=== PATIENT | male | born 1975 | race African-American/Black ===

== ENCOUNTER 2017-07-20 20:14 | Inpatient (IN) | payer BC ==
[~2017-07-20 20:14] MED LIST: ISOVUE-370 76%-LOCM 1 ML ONE
[2017-07-20] MEDS ORDERED: Fentanyl 100 MCG/2 ML VIAL ONE (21:05)
[2017-07-20] MEDS ORDERED: Lidocaine 1% w/Epinephrine 1:100K 20 ML VIAL FS SCH (21:15)
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
[2017-07-20] MEDS ORDERED: Morphine 4 MG/ML VIAL ONE (22:23)
[2017-07-20] MEDS ORDERED: Clindamycin/D5W 900 mg/50 ml Premix Bag ONE (22:23)
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
[2017-07-20] MEDS ORDERED: Adacel (T-DAP) 0.5 ML VIAL ONE (23:03)
[2017-07-20] MEDS ORDERED: Bacitracin Zinc 1 Packet ONE (23:32)
[2017-07-21] MEDS ORDERED: Ondansetron ODT 4 MG TAB SL PRN (00:37)
[2017-07-21] MEDS ORDERED: D5 1/2 NS w/20 mEq KCL 1,000 ML IV SCH (00:37)
[2017-07-21] MEDS ORDERED: Ondansetron HCl/PF 4 MG/2 ML Vial IVP PRN ×2 (00:37→00:38)
[2017-07-21] MEDS ORDERED: Dextrose 50% Abboject 50 ML SYRINGE SLOW IVP PRN (00:38)
[2017-07-21] MEDS ORDERED: Dextrose 5% in Water 1,000 ML IV PRN (00:38)
[2017-07-21] MEDS ORDERED: Morphine 4 MG/ML VIAL IV PRN ×2 (00:38)
[2017-07-21] MEDS ORDERED: Chlorhexidine Gluconate 15 ML UDCUP SSP PRN (00:38)
[2017-07-21] MEDS ORDERED: hydrALAZINE 20 MG/ML VIAL SLOW IVP PRN (00:38)
[2017-07-21] MEDS ORDERED: Promethazine HCl 25 MG/ML VIAL IM PRN (00:38)
[2017-07-21] MEDS ORDERED: Ondansetron ODT 4 MG TAB PO PRN (00:38)
[2017-07-21] MEDS ORDERED: Chlorhexidine Gluconate 15 ML UDCUP SSP SCH (00:45)
[2017-07-21] MEDS ORDERED: Ketorolac Tromethamine 30 MG/ML VIAL IVP SCH (00:45)
[2017-07-21 00:46] VITALS: BMI 22.2
[2017-07-21] MEDS: Sodium Chloride 0.9% 1,000 ML IV SCH ×2 (01:23→11:30)
[2017-07-21 05:30] LABS: #Monocytes 0.6 thou/uL (0.11-0.59); #Neutrophils 8.7 thou/uL (1.40-6.50); %Basophils 0.1 % (0.0-1.0); %Eosinophils 0.1 % (0.0-10.0); %Lymphocytes 10.1 % (21.0-51.0); %Monocytes 5.5 % (0.0-10.0); %Neutrophils 84.3 % (42.0-75.0); Hemoglobin 14.8 g/dL (14.0-18.0); Mean Corpuscular HGB CONC 33.9 g/dL (32.0-36.0); Mean Corpuscular Hemoglobin 32.2 pg (27.0-31.0); Mean Platelet Volume 7.2 fL (7.4-10.4); Platelet Count 170 thou/uL (130-400); RBC Distribution Width 10.8 % (11.5-14.5); Red Blood Cell (RBC) Count 4.59 mill/uL (4.70-6.10); White Blood Cell (WBC) Count 10.3 thou/uL (4.8-10.8)
[2017-07-21] MEDS: Chlorhexidine Gluconate 15 ML UDCUP SSP SCH ×4 (05:30→23:06)
[2017-07-21] MEDS: Clindamycin/D5W 900 MG in Premix Bag 1 BAG IVPB SCH ×3 (05:30→21:55)
[2017-07-21] MEDS: Ketorolac Tromethamine 30 MG/ML VIAL IVP SCH ×4 (05:30→23:07)
[2017-07-21 05:38] LABS: INR-International Normal Ratio 1.2; Prothrombin Time 15.7 SEC (12.0-14.7)
[2017-07-21 05:43] LABS: Anion Gap 11 mmol/L (10-20); BUN (Urea Nitrogen) 15 mg/dL (8.9-20.6); Calc. Creatinine Clearance 96 mL/min (70-130); Calcium 8.8 mg/dL (7.8-10.44); Carbon Dioxide 25 mmol/L (22-29); Chloride 106 mmol/L (98-107); Estimated GFR-MDRD Greater than 90; Glucose 98 mg/dL (70-105); Potassium 3.9 mmol/L (3.5-5.1); Sodium 138 mmol/L (136-145)
[2017-07-21] MEDS ORDERED: Clindamycin/D5W 900 MG in Premix Bag 1 BAG IVPB SCH (06:00)
[2017-07-21] MEDS: Famotidine/PF 20 mg/2ml Vial SLOW IVP SCH ×2 (08:48→21:54)
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
[2017-07-21] MEDS: Acetaminophen 500 MG TAB PO PRN ×2 (16:38→22:05)
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
[2017-07-22] MEDS: Sodium Chloride 0.9% 1,000 ML IV SCH ×3 (05:31→16:00)
[2017-07-22] MEDS: Chlorhexidine Gluconate 15 ML UDCUP SSP SCH ×4 (05:32→21:07)
[2017-07-22] MEDS: Clindamycin/D5W 900 MG in Premix Bag 1 BAG IVPB SCH ×3 (05:32→21:08)
[2017-07-22] MEDS: Ketorolac Tromethamine 30 MG/ML VIAL IVP SCH ×2 (05:33→16:23)
[2017-07-22] MEDS ORDERED: Lidocaine 1% w/Epinephrine 1:200K 30 ML VIAL ONE ×2 (07:12→08:41)
[2017-07-22] MEDS ORDERED: Hydrocortisone 1% Cream 30 GM TUBE ONE (07:12)
[2017-07-22] MEDS ORDERED: Chlorhexidine Gluconate 15 ML UDCUP SSP ONE (07:12)
[2017-07-22] MEDS ORDERED: HYDROmorphone 0.5 MG/0.5 ML SYRINGE ONE (07:27)
[2017-07-22] MEDS ORDERED: Fentanyl 100 MCG/2 ML VIAL ONE (07:27)
[2017-07-22] MEDS ORDERED: Oxymetazoline HCl 0.05% ( 15 ML ) ONE (08:06)
[2017-07-22] MEDS ORDERED: Promethazine HCl 25 MG/ML VIAL IM PRN (11:27)
[2017-07-22] MEDS ORDERED: Ondansetron HCl/PF 4 MG/2 ML Vial IVP PRN (11:27)
[2017-07-22] MEDS ORDERED: HYDROmorphone 2 MG/ML VIAL SLOW IVP PRN (11:27)
[2017-07-22] MEDS ORDERED: Promethazine HCl 25 MG/ML VIAL SLOW IVP PRN (11:27)
[2017-07-22] MEDS ORDERED: Propofol 200 MG/20 ML VIAL ONE (12:09)
[2017-07-22] MEDS ORDERED: Glycopyrrolate 0.2 MG/ML 5 ML SYRINGE ONE (12:09)
[2017-07-22] MEDS ORDERED: Dexamethasone 20 MG/5 ML VIAL ONE (12:09)
[2017-07-22] MEDS ORDERED: Lidocaine 1% PF 5 ML VIAL ONE (12:09)
[2017-07-22] MEDS ORDERED: Ondansetron HCl/PF 4 MG/2 ML Vial ONE (12:09)
[2017-07-22] MEDS ORDERED: Ketorolac Tromethamine 30 MG/ML VIAL ONE (12:09)
[2017-07-22] MEDS: Famotidine/PF 20 mg/2ml Vial SLOW IVP SCH ×2 (15:42→21:08)
[2017-07-22] MEDS ORDERED: Acetaminophen 650 MG/20.3 ML UDCUP PO PRN (15:59)
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
[2017-07-22] MEDS: Hydrocodone-Acetamin 15 ML UDCUP PO PRN (21:14)
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
[2017-07-23] MEDS: Ibuprofen 100 MG/5 ML UDCUP PO PRN ×2 (00:27→07:55)
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
[2017-07-23] MEDS: Hydrocodone-Acetamin 15 ML UDCUP PO PRN ×2 (03:12→10:52)
[2017-07-23] MEDS: Clindamycin/D5W 900 MG in Premix Bag 1 BAG IVPB SCH (05:48)
[2017-07-23] MEDS: Chlorhexidine Gluconate 15 ML UDCUP SSP SCH ×2 (05:48→12:49)
[2017-07-23] MEDS: Famotidine/PF 20 mg/2ml Vial SLOW IVP SCH (07:57)
[2017-07-23 12:06] VITALS: BP 121/73; TEMP 97.4
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
== END 2017-07-23 16:05 | disposition home or self-care (01) | DRG 132 ==
LOC: ERS 20:14 → SURG A 22:17
PROVIDERS: ADMIT Surgery; ATTEND Surgery
PROC: 0JQH3ZZ Repair Left Lower Arm Subcutaneous Tissue and Fascia, Percutaneous Approach (ICD-10-PCS; 2017-07-20)
PROC: 0NST04Z Reposition Right Mandible with Internal Fixation Device, Open Approach (ICD-10-PCS; principal; 2017-07-22)
PROC: 0NSV04Z Reposition Left Mandible with Internal Fixation Device, Open Approach (ICD-10-PCS; 2017-07-22)
DX: S02.612A Fracture of condylar process of left mandible, initial encounter for closed fracture (principal); G89.11 Acute pain due to trauma; S02.66XA Fracture of symphysis of mandible, initial encounter for closed fracture; S51.012A Laceration without foreign body of left elbow, initial encounter; V47.5XXA Car driver injured in collision with fixed or stationary object in traffic accident, initial encounter; Y92.410 Unspecified street and highway as the place of occurrence of the external cause; Z23 Encounter for immunization
CPT/HCPCS: 12032; 36415; 70450; 70486; 71260; 72125; 74177; 80048; 85025; 85610; 85730; 90471; 90715; 96361; 96374; 96375; A4216; C1713; G0390; J1100; J1170; J1885; J2001; J2270; J2405; J2704; J3010; J3490; S0028

== ENCOUNTER 2017-07-31 15:06 | Emergency (ER) | payer BC | END 2017-07-31 16:18 | disposition home or self-care (01) | LOC: ERS 15:06 | DX: S41.112D Laceration without foreign body of left upper arm, subsequent encounter (principal); V89.2XXD Person injured in unspecified motor-vehicle accident, traffic, subsequent encounter ==